=== PATIENT | female | born 1980 | race Caucasian/White ===

== ENCOUNTER 2022-03-01 18:13 | Emergency (ER) | payer OTHER, SELFPAY ==
[2022-03-01 18:14] VITALS: BP 114/76; PULSE 86; RESP 15; TEMP 36.7; O2SAT 100; BMI 15.2
== END 2022-03-01 18:32 | disposition left against medical advice (07) ==
LOC: ED 18:48
PROVIDERS: PCP Family Medicine
DX: Z53.21 Procedure and treatment not carried out due to patient leaving prior to being seen by health care provider (principal)

== ENCOUNTER 2022-03-04 08:59 | Emergency (ER) | payer MEDICAID, SELFPAY ==
[2022-03-04 09:00] VITALS: BP 145/80; PULSE 89; RESP 16; TEMP 36.7; O2SAT 100; BMI 15.0
--- NOTE | 2022-03-04 09:10 | NURSING ---
NO OLD EKGS
--- NOTE | 2022-03-04 09:19 | EKG12_ITS ---
Test Reason : SYNCOPE Blood Pressure : / mmHG Vent. Rate : 080 BPM Atrial Rate : 080 BPM P-R Int : 126 ms QRS Dur : 080 ms QT Int : 370 ms P-R-T Axes : 081 085 078 degrees QTc Int : 426 ms Normal sinus rhythm Normal ECG Confirmed by ARRON ELI, LUDIN ([id number]), material expeditor SUSY WILSON ([id number]) on 03/07/2022 9:18:51 AM Referred By: Confirmed By:LUDIN HELLER MD
--- NOTE | 2022-03-04 09:21 | EX.ED.DYSGE1 ---
HPI History of Present Illness Chief Complaint: Palpitations Informant: patient Narrative Narrative: 41-year-old female presenting to the emergency room with chief complaint of palpitations. Patient states that she developed a rash on her lower left leg. She developed this after working out in her yard. Started off as a black dot progressed into red lesions. She states she was originally put on prednisone and then later went to urgent care was taken off the prednisone. They outlined the lesions and ink. The patient states that over the past 24 hours she has developed palpitations just does not feel like her normal self. She states that she is very worried about what could be happening. PFSH PFSH Medical History no medical history Allergy/AdvReac Type Severity Reaction Status Date / Time No Known Allergies Allergy Verified 03/04/22 09:02 Surgical History no surgical history Social History (Updated 03/04/22 @ 09:[address] Wu Bentley, DO) Smoking Status: Current every day smoker tobacco type: cigarettes substance use type: does not use ROS ROS ED Constitutional Constitutional ED: Denies chills, fever(s) or weight loss Eyes Eyes: Denies change in vision or diplopia ENT ENT ED: Denies ear pain, rhinorrhea or sore throat Cardiovascular Cardiovascular: Reports palpitations; Denies chest pain, orthopnea or racing heartbeat Respiratory/Chest Respiratory/Chest: Denies cough, dyspnea or orthopnea Gastrointestinal Gastrointestinal: Denies abdominal pain, diarrhea, nausea or vomiting Genitourinary Genitourinary ED: Denies dysuria, hematuria or urinary frequency Musculoskeletal Musculoskeletal: Denies arthralgias or myalgias Integumentary Reports rash; Denies abscess or Abrasions Neurologic Neurologic: Denies headache(s) or weakness Psychiatric Psychiatric: Denies anxiety, depression, suicidal ideation or suicidal thoughts Endocrine Endocrinology: Denies polydipsia, polyphagia or polyuria Allergic/Immunologic Allergic/Immunologic ED: Denies mouth swelling, tongue swelling or urticaria EXAM Physical Exam Const Vital Signs: 03/04/22 09:00 03/04/22 09:22 03/04/22 09:22 Temperature 98.1 F Temperature Source Temporal Pulse Rate 89 82 Respiratory Rate 16 14 Respiratory Effort Normal Non-Labored Blood Pressure 145/80 H 128/85 H Blood Pressure Mean 101 99 Pulse Ox 100 96 Oxygen Delivery Method Room Air Room Air Positive well nourished and well developed General Appearance ED: well developed HEENT Reports normocephalic, head/scalp atraumatic and moist mucous membranes Eyes PERRL and EOMs intact bilaterally Neck no lymphadenopathy, supple and no JVD Resp normal respiratory effort and clear to auscultation bilaterally Cardio regular rate, regular rhythm and no murmurs GI normal to inspection, nondistended, normoactive bowel sounds and non-tender Palpation: soft Back/Spine no CVA tenderness and normal ROM Extremity normal to inspection General Extremety ED: Negative for edema General Extremity: Negative for edema Neuro oriented x3 and CN's II-XII intact bilaterally Sensorium / Orientation: alert Motor Exam: strength 5/5 throughout Psych mental status grossly normal Mood & Affect: Negative for depressed or tearful Skin no wounds Skin Narrative: There is 2 nonpalpable purpura like lesions measuring about a quarter size of the lower left lateral ankle. Surrounding this are numerous small 1mm nonblanching lesions that are nonpalpable. There is no lymphangitis. The lesions are not extending beyond the outlined area. MDM MDM MDM Narrative Medical decision making narrative: Patient was observed on the monitor remains in a normal sinus rhythm. No dysrhythmias were noted. White count is 9.2 hemoglobin 12.2 and platelet count is 234. CMP is normal. Clinically the patient appears well. I would believe that some of her abnormal sensations like palpitations are related to her prednisone. I would recommend no further treatment for the lower leg at this time. It is purpura like and not cellulitic in nature. It does not appear to be negatively evolving. This should resolve on its own. Patient was advised to return if any concerns or worsening. Lab Data Labs: Laboratory Results - last 24 hr 03/04/22 03/04/22 09:30 09:30 WBC 9.2 RBC 3.55 L Hgb 12.2 Hct 36.5 L MCV 102.8 H MCH 34.4 H MCHC 33.4 RDW Std Deviation 50.1 H RDW Coeff of Laney 13.1 Plt Count 234 MPV 8.9 Immature Gran % (Auto) 0.200 Neut % (Auto) 59.1 Lymph % (Auto) 33.5 Catron % (Auto) 6.1 Eos % (Auto) 0.7 Baso % (Auto) 0.4 Absolute Neuts (auto) 5.4 Absolute Lymphs (auto) 3.08 Nucleated RBC % 0 Sodium 141 Potassium 3.5 Chloride 103 Carbon Dioxide 29.0 Anion Gap 9 BUN 16 Creatinine 0.79 Estim Creat Clear Calc 59.05 Est GFR (MDRD) Af Amer 103 Est GFR (MDRD) Non-Af 85 BUN/Creatinine Ratio 20.4 H Glucose 96 Calcium 9.3 Total Bilirubin 0.60 AST 13 L ALT 23 Alkaline Phosphatase 51 Total Protein 7.4 Albumin 4.1 Globulin 3.3 Albumin/Globulin Ratio 1.2 EKG Initial EKG: Attestation: I personally reviewed and interpreted this EKG as follows: Comments: Normal sinus rhythm ventricular rate of 80 bpm. Discharge Plan Triage Chief Complaint: Palpitations Other Complaint: Bite ED Provider: Wu Bentley Dx/Rx/DC Orders Clinical Impression: Purpura, Palpitations Instructions: ED Drug Reaction, Other, ED Palpitations Primary Care Provider: Care Physician,No Primary Referrals: Gurpreet Wylie MD [Med Staff - [employer]] - As Needed Disposition Disposition: Home, Self Care
[2022-03-04 09:22] VITALS: BP 128/85; PULSE 82; RESP 14; O2SAT 96
[2022-03-04 09:40] LABS: Absolute Lymphocyte Count 3.08 X10^3/uL (0.83-4.51); Absolute Neutrophil Count 5.4 X10^3/uL (2.0-7.7); Basophil# 0.04 X10^3/uL; Basophil% 0.4 % (0-1); Eosinophil# 0.06 X10^3/uL; Eosinophils% 0.7 % (0-5); Hematocrit 36.5 % (37-47); Hemoglobin 12.2 g/dL (12.0-15.0); Lymphocyte # 3.08 X10^3/ul (0.83-4.51); Lymphocyte % 33.5 % (19-41); Mean Corp Hgb Conc 33.4 g/dL (32-36); Mean Corpuscular Hgb 34.4 pg (27.0-32.0); Mean Corpuscular Volume 102.8 fL (81-99); Mean Platelet Vol. 8.9 fl (6.2-12.0); Monocyte# 0.56 X10^3/uL; Monocyte% 6.1 % (0-10); NRBC Flagged by Analyzer 0 % (0-5); Neutrophil # 5.43 X10^3/uL (2.7-7.7); Neutrophil % 59.1 % (47-70); Platelet Count 234 K/mm3 (150-450); RBC Distribution Width CV 13.1 % (11.6-14.6); RBC Distribution Width SD 50.1 fl (35.1-43.9); Red Blood Count 3.55 M/mm3 (4.2-5.4); White Blood Count 9.2 K/mm3 (4.4-11.0)
[2022-03-04 09:57] LABS: ALB/GLOB Ratio 1.2 RATIO (0.9-2.4); AST(SGOT) 13 U/L (15-37); Alanine Aminotransfer ALT/SGPT 23 U/L (13-56); Albumin, Serum 4.1 g/dL (3.2-5.0); Alkaline Phosphatase 51 U/L (45-117); Anion Gap 9 (5-15); BUN 16 mg/dL (7-18); BUN/Creat Ratio 20.4 RATIO (10-20); Calcium,Total 9.3 mg/dL (8.5-10.1); Chloride 103 mmol/L (98-107); Creatinine, Serum 0.79 mg/dL (0.55-1.02); EST Glomerular Filtration Rate 85 mL/min (>60); Est Glom Filt Rate - Afr Amer 103 mL/min (>60); Estimated Creatinine Clearance 59.05 ml/min; Globulin 3.3 g/dL (2.2-4.2); Glucose 96 mg/dL (74-106); Potassium 3.5 mmol/L (3.5-5.1); Protein, Total 7.4 g/dL (6.4-8.2); Sodium Level 141 mmol/L (136-145)
[2022-03-04 10:18] VITALS: BP 98/71; PULSE 80; RESP 16; O2SAT 98
--- NOTE | 2022-03-04 11:24 | CM.ED ---
DOT noted on tracker that patient has no PCP. DOT attempted to give her list of [facility] Healthcare Providers but MD was meeting with patient. SW went back to meet with patient but she had left. Anna PARSONS
== END 2022-03-04 10:19 | disposition home or self-care (01) ==
PROVIDERS: Emergency Provider Emergency Medicine; Visit Provider Emergency Medicine
DX: R00.2 Palpitations (principal); D69.2 Other nonthrombocytopenic purpura; F17.210 Nicotine dependence, cigarettes, uncomplicated
CPT/HCPCS: 80053; 85025; 93005; 99284; A4216

== ENCOUNTER 2023-03-13 10:42 | Emergency (ER) | payer SELFPAY ==
[2023-03-13 10:43] VITALS: BP 127/74; PULSE 85; RESP 14; TEMP 36.4; O2SAT 97; BMI 16.0
[2023-03-13 10:52] VITALS: O2SAT 98
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
[2023-03-13 12:54] VITALS: BP 124/69; PULSE 62; RESP 15; O2SAT 100
== END 2023-03-13 12:55 | disposition home or self-care (01) ==
PROVIDERS: Emergency Provider Emergency Medicine; Visit Provider Emergency Medicine
DX: S06.0X0A Concussion without loss of consciousness, initial encounter (principal); S16.1XXA Strain of muscle, fascia and tendon at neck level, initial encounter; F17.210 Nicotine dependence, cigarettes, uncomplicated; V43.92XA Unspecified car occupant injured in collision with other type car in traffic accident, initial encounter
CPT/HCPCS: 72040; 99282

== ENCOUNTER 2023-12-21 08:17 | Emergency (ER) | payer OTHER, SELFPAY ==
[2023-12-21 08:18] VITALS: BP 126/85; PULSE 98; RESP 15; TEMP 36.3; O2SAT 100; BMI 15.7
--- NOTE | 2023-12-21 08:51 | EDS_ITS ---
HPI History of Present Illness Chief Complaint: General Illness Informant: patient Onset/Context/Timing Onset: Days (3) Context: Gradual Onset Timing: Intermittent Quality: Tingling Location: Generalized Worsened by: Nothing Relieved by: Eating Narrative Narrative: Patient presents with feeling shaky, lightheaded, weak, and cold. Patient states that intermittent over the last 3 days. Patient states she feels tingly all over. Patient states there are times where she feels like she is going to pass out. Patient denies any fevers. Patient admits to some subjective chills. Patient denies any nausea or vomiting. Patient denies any headaches. Patient states that sometimes her symptoms get better after eating. Patient states nothing makes it worse. Patient states she does not have a primary care physician. PFSH PFS Medical History no medical history no medical history Home Medications ?Medication ?Instructions ?Recorded ?Last Taken ?Type sulfamethoxazole 800 1 tab PO BID #6 TABLETS 12/21/23 Unknown Rx mg-trimethoprim 160 mg tablet Allergy/AdvReac Type Severity Reaction Status Date / Time No Known Allergies Allergy Verified 12/21/23 08:21 Surgical History no surgical history no surgical history Social History Smoking Status: Current every day smoker tobacco type: e-cigarettes substance use type: does not use ROS ROS ED Constitutional Constitutional ED: Reports chills; Denies fever(s) Eyes Eyes: Denies blurry vision or change in vision ENT ENT ED: Denies rhinorrhea or sore throat Cardiovascular Cardiovascular: Denies chest pain or palpitations Respiratory/Chest Respiratory/Chest: Denies cough or dyspnea Gastrointestinal Gastrointestinal: Denies nausea or vomiting Genitourinary Genitourinary ED: Denies dysuria or hematuria Musculoskeletal Musculoskeletal: Denies back pain or neck pain Integumentary Denies abscess or rash Neurologic Neurologic: Denies headache(s) or weakness Allergic/Immunologic Allergic/Immunologic ED: Denies mouth swelling or urticaria EXAM Physical Exam Const Vital Signs: 12/21/23 08:18 12/21/23 08:31 12/21/23 09:17 Temperature 97.3 F L Temperature Source Temporal Pulse Rate 98 Pulse Rate [Lying] 70 Pulse Rate [Sitting (for 1 minute prior to obtaining)] 79 Pulse Rate [Standing (for 1 minute prior to obtaining)] 79 Respiratory Rate 15 Respiratory Effort Normal Non-Labored Blood Pressure 126/85 H Blood Pressure [Lying] 123/79 H Blood Pressure [Sitting (for 1 minute prior to obtaining)] 124/86 H Blood Pressure [Standing (for 1 minute prior to obtaining)] 113/84 H Blood Pressure Mean 98 Blood Pressure Mean [Lying] 93 Blood Pressure Mean [Sitting (for 1 minute prior to obtaining)] 98 Blood Pressure Mean [Standing (for 1 minute prior to obtaining)] 93 Pulse Ox 100 Oxygen Delivery Method Room Air 12/21/23 10:17 12/21/23 11:38 Temperature 97.3 F L Temperature Source Pulse Rate 66 80 Pulse Rate [Lying] Pulse Rate [Sitting (for 1 minute prior to obtaining)] Pulse Rate [Standing (for 1 minute prior to obtaining)] Respiratory Rate 16 16 Respiratory Effort Blood Pressure 101/70 108/79 Blood Pressure [Lying] Blood Pressure [Sitting (for 1 minute prior to obtaining)] Blood Pressure [Standing (for 1 minute prior to obtaining)] Blood Pressure Mean 80 88 Blood Pressure Mean [Lying] Blood Pressure Mean [Sitting (for 1 minute prior to obtaining)] Blood Pressure Mean [Standing (for 1 minute prior to obtaining)] Pulse Ox 99 99 Oxygen Delivery Method Room Air Positive well nourished and well developed General Appearance ED: well developed and NAD HEENT Reports moist mucous membranes Neck supple and no JVD Resp normal respiratory effort and clear to auscultation bilaterally Cardio regular rate and regular rhythm GI non-tender and non-distended Palpation: soft Extremity normal to inspection General Extremety ED: Negative for edema or tenderness General Extremity: Negative for edema Neuro oriented x3, CN's II-XII intact bilaterally and no sensory deficits noted Sensorium / Orientation: alert Motor Exam: strength 5/5 throughout MDM MDM MDM Narrative Medical decision making narrative: Differential diagnosis includes urinary tract infection, , electrolyte abnormality, hypothyroidism, hyperthyroidism, autoimmune disease, and anxiety. CBC will be obtained to assess for leukocytosis and anemia. Basic metabolic profile will be obtained to assess for electrolyte abnormality and renal function. TSH will be obtained to assess for hypothyroidism and hyperthyroidism. Serum hCG will be obtained to assess for . Lab Data Attestation: I reviewed the patient's lab results. Lab results narrative: CBC was reviewed and was essentially within normal limits. Basic metabolic profile was reviewed. Sodium was slightly low at 134. The remainder is within normal limits. Serum hCG was reviewed and was negative. TSH was reviewed and was normal at 0.71. Urinalysis was reviewed. Leukocyte esterase was 500 with 5 0-100 white blood cells. There were greater than 100 squamous epithelial cells. There is 3+ bacteria. Labs: Laboratory Results - last 24 hr 12/21/23 12/21/23 09:00 10:40 WBC 6.1 RBC 3.83 L Hgb 13.0 Hct 38.7 MCV 101.0 H MCH 33.9 H MCHC 33.6 RDW Std Deviation 44.9 H RDW Coeff of Laney 12.0 Plt Count 269 MPV 9.0 Immature Gran % (Auto) 0.300 Neut % (Auto) 68.9 Lymph % (Auto) 24.5 Bell % (Auto) 5.1 Eos % (Auto) 0.5 Baso % (Auto) 0.7 Absolute Neuts (auto) 4.2 Absolute Lymphs (auto) 1.48 Nucleated RBC % 0 Sodium 134 L Potassium 4.3 Chloride 102 Carbon Dioxide 27.0 Anion Gap 5 BUN 12 Creatinine 0.83 Estim Creat Clear Calc 57.57 Est GFR (MDRD) Af Amer 96 Est GFR (MDRD) Non-Af 80 BUN/Creatinine Ratio 14.5 Glucose 101 Calcium 9.4 TSH 0.71 Serum , Qual NEGATIVE Urine Color Yellow Urine Clarity Cloudy Urine pH 7.0 Ur Specific [place] 1.005 Urine Protein 15 H Urine Glucose (UA) Normal Urine Ketones 5 H Urine Occult Blood 50 H Urine Nitrite Negative Urine Bilirubin Negative Urine Urobilinogen Normal Ur Leukocyte Esterase 500 H Urine RBC 0 SEEN Urine WBC 50-100 SEEN Ur Squamous Epith Cells > 100 SEEN Urine Bacteria 3+ Urine Mucus 0 SEEN Additional Tests and Interventions Additional Tests or Interventions: Urine culture was ordered. Treatment and Re-Evaluation :: Nicotine cessation was discussed. Orthostatic vital signs were obtained and were within normal limits. Patient was advised of her findings. Patient was given a prescription for a short course of Bactrim. Patient was given a referral for primary care physician for follow-up care and further evaluation. Patient understood and was agreeable with the plan. All questions were answered. Discharge Plan Triage Chief Complaint: General Illness ED Provider: Gurpreet Nevarez Dx/Rx/DC Orders Clinical Impression: Urinary tract infection, Lightheadedness, Nicotine use disorder Instructions: ED Dizziness, Uncertain Cause, ED Cystitis Female Adult Prescriptions: New sulfamethoxazole-trimethoprim 800-160 mg tablet 1 tab PO BID Qty: 6 0RF Primary Care Provider: Care Physician,No Primary Referrals: Jaguar Mckeon MD [Med Staff - Ladies Suit Operator] - 5-7 Days Care Physician,No Primary [Primary Care Provider] - Print Language: Spanish Disposition Disposition: Home, Self Care Discharge Date/Time: 12/21/23 11:39
[2023-12-21 09:17] VITALS: BP 113/84; BP 123/79; BP 124/86; PULSE 70; PULSE 79
[2023-12-21 09:17] LABS: Absolute Lymphocyte Count 1.48 X10^3/uL (0.83-4.51); Absolute Neutrophil Count 4.2 X10^3/uL (2.0-7.7); Basophil# 0.04 X10^3/uL; Basophil% 0.7 % (0-1); Eosinophil# 0.03 X10^3/uL; Eosinophils% 0.5 % (0-5); Hematocrit 38.7 % (37-47); Lymphocyte # 1.48 X10^3/ul (0.83-4.51); Lymphocyte % 24.5 % (19-41); Mean Corp Hgb Conc 33.6 g/dL (32-36); Mean Corpuscular Hgb 33.9 pg (27.0-32.0); Monocyte# 0.31 X10^3/uL; Monocyte% 5.1 % (0-10); NRBC Flagged by Analyzer 0 % (0-5); Neutrophil # 4.17 X10^3/uL (2.7-7.7); Neutrophil % 68.9 % (47-70); Platelet Count 269 K/mm3 (150-450); RBC Distribution Width SD 44.9 fl (35.1-43.9); Red Blood Count 3.83 M/mm3 (4.2-5.4); White Blood Count 6.1 K/mm3 (4.4-11.0)
[2023-12-21 09:42] LABS: Internal QC Validated? YES +Cl - CLEAR BKGD; Pregnancy, Serum, hCG Quali. NEGATIVE Negative
[2023-12-21 10:17] VITALS: BP 101/70; PULSE 66; RESP 16; O2SAT 99
[2023-12-21 10:18] LABS: Anion Gap 5 (5-15); BUN 12 mg/dL (7-18); BUN/Creat Ratio 14.5 RATIO (10-20); Calcium,Total 9.4 mg/dL (8.5-10.1); Chloride 102 mmol/L (98-107); Creatinine, Serum 0.83 mg/dL (0.55-1.02); EST Glomerular Filtration Rate 80 mL/min (>60); Est Glom Filt Rate - Afr Amer 96 mL/min (>60); Estimated Creatinine Clearance 57.57 ml/min; Glucose 101 mg/dL (74-106); Potassium 4.3 mmol/L (3.5-5.1); Sodium Level 134 mmol/L (136-145); Thyroid Stim Hormone (TSH) 0.71 uIU/mL (0.358-3.74)
[2023-12-21 10:48] LABS: Mucous, Urine 0 SEEN /hpf (<or=2+); Red Blood Cells-Urine 0 SEEN /hpf (0-5)
[2023-12-21 10:50] LABS: Color, Urine Yellow (Yellow); Glucose, Dipstick Normal (Normal); Ketone-Dipstick 5 mg/dl (Negative); Leukocyte Esterase-Dipstick 500 /ul (Negative); Nitrite-Dipstick Negative (Negative); Occult Blood-Urine 50 /ul (Negative); Protein-Dipstick 15 mg/dl (Negative); Specific Gravity, Urine 1.005 (1.002-1.030); Urine Bilirubin Dipstick Negative (Negative); Urine Clarity Cloudy (Clear); Urine Urobilinogen Normal (Normal)
[2023-12-21 10:56] LABS: Squamous Epithelial Cells - UA > 100 SEEN /hpf (5-10); White Blood Cells 50-100 SEEN /hpf (0-5)
[2023-12-21 10:57] LABS: Bacteria 3+ /hpf (None Seen)
[2023-12-21] MEDS: Smz/Tmp Ds Tablet 1 TABLET PO (11:34)
[2023-12-21 11:38] VITALS: BP 108/79; PULSE 80; RESP 16; TEMP 36.3; O2SAT 99
== END 2023-12-21 11:39 | disposition home or self-care (01) ==
PROVIDERS: Emergency Provider Emergency Medicine; Visit Provider Emergency Medicine
DX: N39.0 Urinary tract infection, site not specified (principal); R42 Dizziness and giddiness; F17.290 Nicotine dependence, other tobacco product, uncomplicated
CPT/HCPCS: 80048; 81001; 84443; 84703; 85025; 87086; 99284; A4216

== ENCOUNTER → 2025-02-26 | Outpatient (CLI) | payer OTHER, SELFPAY ==
[2025-02-26 11:07] LABS: Hematocrit 34.2 % (37-47); Hemoglobin 11.2 g/dL (12.0-15.0); Immature Granulocytes Count 0.030 X10^3/uL (0.0-0.0); Mean Corp Hgb Conc 32.7 g/dL (32-36); Mean Corpuscular Volume 100.0 fL (81-99); Mean Platelet Vol. 9.9 fl (6.2-12.0); NRBC Flagged by Analyzer 0 % (0-5); Platelet Count 304 K/mm3 (150-450); RBC Distribution Width CV 13.1 % (11.6-14.6); RBC Distribution Width SD 47.6 fl (35.1-43.9); Red Blood Count 3.42 M/mm3 (4.2-5.4); White Blood Count 7.6 K/mm3 (4.4-11.0)
[2025-02-26 11:41] LABS: Ferritin 59 ng/mL (22-378); HIV Nonreactive (Nonreactive); Hepatitis B Surface Antigen Nonreactive (Nonreactive); Hepatitis C Antibody Nonreactive (Nonreactive); Iron 117 ug/dL (50-170); Iron Binding Capacity,Total 350 ug/dL (250-450); Iron Binding Capacity,Unsat 233 ug/dL (228-428); Syphilis Antibodies Nonreactive (Nonreactive)
[2025-03-03 09:08] LABS: Chlamydia By Nucleic Acid AMP Negative (Negative); Gonococcus By Nucleic Acid AMP Negative (Negative); Vitamin B1, Thiamine 96.4 nmol/L (66.5-200.0)
[2025-03-04 21:08] LABS: HPV APTIMA, High Risk Positive (Negative); HPV Genotype 16, Aptima Negative (Negative); HPV Genotype 18,45 Aptima Negative (Negative)
== END | disposition home or self-care (01) ==
LOC: BWCLAB 08:59
PROVIDERS: Referring Provider Obstetrics & Gynecology; Visit Provider Obstetrics & Gynecology
DX: O99.891 Other specified diseases and conditions complicating pregnancy (principal); R63.6 Underweight; Z3A.00 Weeks of gestation of pregnancy not specified
CPT/HCPCS: 36415; 82728; 83540; 83550; 84425; 85025; 86703; 86762; 86780; 86803; 86850; 86900; 86901; 87086; 87340; 87491; 87591; 87624; 88175; G0145